=== PATIENT | female | born 1980 | race Asian ===

== ENCOUNTER 2017-05-09 23:27 | Emergency (ER) | payer BC ==
[2017-05-09 23:58] LABS: URINE HCG POC HCG NEGATIVE (Negative)
[2017-05-10 00:09] LABS: BILIRUBIN,URINE SMALL (NEG); CLARITY,URINE CLEAR; COLOR,URINE AMBER; GLUCOSE,URINE NEGATIVE (NEG); NITRITE,URINE NEGATIVE (NEG); PH,URINE 5.5; PROTEIN,URINE NEGATIVE (NEG-TRACE)
[2017-05-10 00:19] LABS: BACTERIA,URINE MODERATE /HPF (0-FEW); RBC,URINE OCC /HPF (0-2); SQUAMOUS EPITHELIAL CELL,UR MANY /LPF
[2017-05-10 00:38] LABS: ADD MAN DIFF? NO
[2017-05-10] MEDS: ONDANSETRON PF 4 MG/2 ML VIAL. IV (00:39)
[2017-05-10] MEDS: IV NORMAL SALINE 1000ML BAG 1,000 ML IV (00:39)
[2017-05-10 00:44] LABS: BASO % 0 % (0-3); EOS # 0.1 x10^3/uL (0.0-0.7); EOS % 2 % (0-3); HEMATOCRIT 36.2 % (36.0-47.0); HEMOGLOBIN 12.3 g/dL (12.0-15.5); LYMPH # 2.7 x10^3/uL (1.0-4.8); LYMPH % 31 % (24-48); MEAN CORPUSCULAR HEMOGLOBIN 30 pg (25-35); MEAN CORPUSCULAR HGB CONC 34 g/dL (31-37); MEAN CORPUSCULAR VOLUME 89 fL (79-100); MONO # 0.4 x10^3/uL (0.0-1.1); MONO % 5 % (0-9); NEUT # 5.4 x10^3uL (1.8-7.7); NEUT % 63 % (31-73); PLATELET COUNT 230 x10^3/uL (140-400); RED BLOOD COUNT 4.09 x10^6/uL (3.50-5.40); RED CELL DISTRIBUTION WIDTH 12.6 % (11.5-14.5); WHITE BLOOD COUNT 8.7 x10^3/uL (4.0-11.0)
[2017-05-10 00:55] LABS: ANION GAP 8 (6-14); BLOOD UREA NITROGEN 17 mg/dL (7-20); BUN/CREATININE RATIO 28 (6-20); CALCIUM 8.9 mg/dL (8.5-10.1); CARBON DIOXIDE 29 mmol/L (21-32); CHLORIDE 103 mmol/L (98-107); CREATININE 0.6 mg/dL (0.6-1.0); GFR 113.1; GLUCOSE 100 mg/dL (70-99); POTASSIUM 3.7 mmol/L (3.5-5.1); SODIUM 140 mmol/L (136-145)
[2017-05-10 01:00] LABS: ALBUMIN 3.8 g/dL (3.4-5.0); ALK PHOS 47 U/L (46-116); ALT (SGPT) 131 U/L (14-59); AST (SGOT) 61 U/L (15-37); LIPASE 90 U/L (73-393); TOTAL BILIRUBIN 0.4 mg/dL (0.2-1.0); TOTAL PROTEIN 7.8 g/dL (6.4-8.2)
[2017-05-10] MEDS: ACETAMINOPHEN 500 MG TABLET PO (02:44)
== END 2017-05-10 03:00 | disposition home or self-care (01) ==
LOC: ER 23:27
DX: R11.2 Nausea with vomiting, unspecified (principal); R42 Dizziness and giddiness
CPT/HCPCS: 36415; 70450; 80053; 81001; 81025; 83690; 85025; 87086; 96361; 96374; 99285-25; J2405; J7030

== ENCOUNTER 2018-01-05 15:37 | Observation (INO) | payer BC ==
[2017-05-10 02:49] VITALS: BP 109/57
[~2018-01-05] VITALS: Ht 154.9 cm; Wt 60.8 kg
[~2018-01-05 15:37] MED LIST: ONDA4TAB10 PO
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
== END 2018-01-05 20:42 | disposition home or self-care (01) ==
LOC: 3 SO LND 15:37
PROVIDERS: ADMIT Specialist; ATTEND Specialist
DX: O26.892 Other specified pregnancy related conditions, second trimester (principal); R10.2 Pelvic and perineal pain; Z3A.27 27 weeks gestation of pregnancy; V49.9XXA Car occupant (driver) (passenger) injured in unspecified traffic accident, initial encounter; Y93.89 Activity, other specified; Y92.410 Unspecified street and highway as the place of occurrence of the external cause
CPT/HCPCS: 36415; 76815; 85460; G0378; G0379

== ENCOUNTER 2018-03-22 05:28 | Inpatient (IN) | payer BC, MEDICAID ==
[2018-03-22] MEDS ORDERED: OXYTOCIN 30 UNIT/500 ML PREMIX 500 ML IV ONE (05:38)
[2018-03-22] MEDS ORDERED: LIDOCAINE 1% PF 30 ML VIAL. ONE (05:38)
[2018-03-22] MEDS ORDERED: OXYTOCIN PREMIX 30 UNIT/500 ML NS BAG. IV ONE (06:00)
[2018-03-22] MEDS ORDERED: IV RINGERS,LACTATED 1000ML 1,000 ML IV SCH (06:18)
--- NOTE | 2018-03-22 06:19 | PDOC1 ---
OB - History Hx of Present Care: Good Care Ultrasounds: Normal mid trimester US Obstetrical Complications: None Medical Complications: None Past Family/Social History * Past Medical, Surgical, Family and Obstetric Histories reviewed from chart. Blood Type: A+ Rubella: Immune RPR/VDRL: Negative GBS Status: Unknown HBsAG: Negative OB - Chief Complaint & HPI Date of Admission: Date of Admission: Mar 22, 2018 at 05:28 Chief Complaint/History : 5 Para: 4 EDC: Apr 03, 2018 Reason for admission: active labor Admission Nurse Assessment Rev: Yes OB - Admission Exam Physical Exam HEENT: Normal, Nasal Mucosa Normal, Oropharynx Normal, Moist Membranes, Fontanelles Normal Heart: Regular Rate Lungs: Clear, Equal Abdomen: Gravid Reflexes: Normal Cervical Dilatation: 9cm Effacement: 100% Station: +1 Membranes: Ruptured Amniotic Fluid: Clear Accelerations: Accelerations Present Contractions on Admission: < 5 Minutes Apart Intensity: Firm Assessment/Plan Assessment/Plan TIUP Labor Precipitous delivery GEMINI GREENE MD Mar 22, 2018 06:19
--- NOTE | 2018-03-22 06:21 | PDOC ---
VAGINAL DELIVERY DATE DATE: 03/22/18 TIME: 06:18 : 5 Para: 4 EDC: Apr 08, 2018 VAGINAL DELIVERY: VTX VACCUM ASSISTED: No PLACENTA: Spontaneous SEX: Male WEIGHT 6/5 Nuchal Cord: No Amniotic Fluid: Clear PAIN: Natural EXTENSION: Yes EBL 300cc COMPLICATIONS None CONDITION Stable Signs of Intrauterine Infectio: None Shoulder Dystocia: No DIAGNOSIS TIUP del precipitous delivery by GEMINI MEJIA MD Mar 22, 2018 06:21
[2018-03-22] MEDS ORDERED: OXYTOCIN 30 UNIT/500 ML PREMIX 500 ML IV PRN ×3 (06:30)
[2018-03-22] MEDS ORDERED: ACETAMINOPHEN 325 MG TABLET. PO PRN ×2 (06:30)
[2018-03-22] MEDS ORDERED: diphenhydrAMINE HCL 25 MG CAPSULE PO PRN (06:30)
[2018-03-22] MEDS ORDERED: CITRIC ACID/SODIUM CITRATE 30 ML SOLUTION. PO PRN (06:30)
[2018-03-22] MEDS ORDERED: 0.9 % SODIUM CHLORIDE 10 ML DISP.SYRIN. IV PRN ×2 (06:30)
[2018-03-22] MEDS ORDERED: BUTORPHANOL 2 MG/ML VIAL. IV PRN ×2 (06:30)
[2018-03-22] MEDS ORDERED: BENZOCAINE 20% TOPICAL AEROSOL SPRAY 57GM CAN. TP PRN (06:30)
[2018-03-22] MEDS ORDERED: TERBUTALINE 1 MG/ML VIAL. SQ PRN (06:30)
[2018-03-22] MEDS ORDERED: ZOLPIDEM 5 MG TABLET. PO PRN (06:30)
[2018-03-22] MEDS ORDERED: SIMETHICONE 80 MG TAB.CHEW PO PRN (06:30)
[2018-03-22] MEDS ORDERED: PHENYLEPH/MINERAL OIL/PETROLAT RECTAL OINTMENT 28GM TUBE. RC PRN (06:30)
[2018-03-22] MEDS ORDERED: MAGNESIUM HYDROXIDE 2,400 MG/30 ML ORAL.SUSP. PO PRN (06:30)
[2018-03-22] MEDS ORDERED: LIDOCAINE 1% PF 30 ML VIAL. INJ PRN (06:30)
[2018-03-22] MEDS ORDERED: MAG HYDROX/ALUMINUM HYD/SIMETH 30 ML ORAL.SUSP PO PRN ×2 (06:30)
[2018-03-22] MEDS ORDERED: HYDROCORTISONE 1% TOPICAL OINTMENT 30GM TUBE. TP PRN (06:30)
[2018-03-22 06:37] LABS: HEMATOCRIT 35.8 % (36.0-47.0); HEMOGLOBIN 11.8 g/dL (12.0-15.5); RED BLOOD COUNT 3.94 x10^6/uL (3.50-5.40); WHITE BLOOD COUNT 8.8 x10^3/uL (4.0-11.0)
[2018-03-22] MEDS: FERROUS SULFATE 325 MG TABLET. PO SCH ×2 (08:00→17:00)
[2018-03-22 09:07] VITALS: BP 118/68
[2018-03-22 10:15] VITALS: BP 104/72
[2018-03-22] MEDS ORDERED: IBUPROFEN 400 MG TABLET. PO SCH (14:00)
[2018-03-22 18:37] VITALS: BP 95/58
[2018-03-22] MEDS: IBUPROFEN 400 MG TABLET. PO PRN (18:49)
[2018-03-22 20:25] VITALS: BP 99/59
[2018-03-23 02:25] VITALS: BP 92/58
[2018-03-23 05:15] VITALS: BP 97/61
[2018-03-23] MEDS: FERROUS SULFATE 325 MG TABLET. PO SCH ×2 (08:00→17:00)
[2018-03-23 09:30] VITALS: BP 99/64
--- NOTE | 2018-03-23 12:47 | PDOC ---
OB Progress Note Date of Service 03/23/18 Time of Evaluation 1244 Notes Pt. feeling well. No complaints. Lab Laboratory Tests Test 03/22/18 06:08 03/23/18 06:02 White Blood Count 8.8 x10^3/uL (4.0-11.0) Red Blood Count 3.94 x10^6/uL (3.50-5.40) Hemoglobin 11.8 g/dL (12.0-15.5) Hematocrit 35.8 % (36.0-47.0) 31.6 % (36.0-47.0) Mean Corpuscular Volume 91 fL (79-100) Mean Corpuscular Hemoglobin 30 pg (25-35) Mean Corpuscular Hemoglobin Concent 33 g/dL (31-37) Red Cell Distribution Width 12.0 % (11.5-14.5) Platelet Count 186 x10^3/uL (140-400) Treponema pallidum Antibody Nonreactive (Nonreactive) Laboratory Tests Test 03/23/18 06:02 Hematocrit 31.6 % (36.0-47.0) Medications Current Medications Lidocaine HCl (Xylocaine 1% Pf 30ml Vial) 30 ml STK-MED ONCE .ROUTE ; Start 11/28 at 05:38; Stop 03/22/18 at 10:11; Status DC Oxytocin/Sodium Chloride 500 ml @ As Directed STK-MED ONCE IV ; Start 03/22/18 at 05:38; Stop 03/22/18 at 10:11; Status DC Sodium Chloride (Normal Saline Flush) 3 ml QSHIFT PRN IV AFTER MEDS AND BLOOD DRAWS; Start 03/22/18 at 06:30; Stop 03/22/18 at 10:11; Status DC Ringer's Solution 1,000 ml @ 125 mls/hr Q8H IV Last administered on 03/22/18at 06:32; Start 03/22/18 at 06:18; Stop 03/22/18 at 10:11; Status DC Butorphanol Tartrate (Stadol) 1 mg PRN Q1HR PRN IV mild to moderate labor pain ; Start 03/22/18 at 06:30; Stop 03/22/18 at 10:11; Status DC Butorphanol Tartrate (Stadol) 2 mg PRN Q1HR PRN IV Severe labor pain; Start 11/28 at 06:30; Stop 03/22/18 at 10:11; Status DC Acetaminophen (Tylenol) 650 mg PRN Q6HRS PRN PO MILD PAIN / TEMP; Start at 06:30 Al Hydroxide/Mg Hydroxide (Mylanta Plus Xs) 30 ml PRN Q4HRS PRN PO HEARTBURN / GAS; Start 03/22/18 at 06:30 Citric Acid/ Sodium Citrate (Bicitra) 30 ml 1X PRN PRN PO DYSPEPSIA; Start 11/28 at 06:30; Stop 03/22/18 at 10:11; Status DC Terbutaline Sulfate (Brethine) 0.25 mg 1X PRN PRN SQ SEE COMMENTS; Start at 06:30; Stop 03/22/18 at 10:11; Status DC Lidocaine HCl (Xylocaine 1% Pf 30ml Vial) 30 ml 1X PRN PRN INJ SEE COMMENTS; Start 03/22/18 at 06:30; Stop 03/22/18 at 10:11; Status DC Oxytocin/Sodium Chloride 500 ml @ 0 mls/hr CONT PRN IV SEE I/O RECORD; Start at 06:30; Stop 03/22/18 at 10:11; Status DC Oxytocin/Sodium Chloride 500 ml @ 0 mls/hr CONT PRN PRN IV Post delivery bleeding; Start 03/22/18 at 06:30; Stop 03/22/18 at 10:11; Status DC Sodium Chloride (Normal Saline Flush) 10 ml QSHIFT PRN IV AFTER MEDS AND BLOOD DRAWS; Start 03/22/18 at 06:30; Stop 03/22/18 at 10:11; Status DC Oxytocin/Sodium Chloride 500 ml @ 62.5 mls/hr CONT PRN IV SEE I/O RECORD; Start 03/22/18 at 06:30; Stop 03/22/18 at 10:11; Status DC Acetaminophen (Tylenol) 650 mg PRN Q6HRS PRN PO MILD PAIN / TEMP; Start at 06:30; Stop 03/22/18 at 06:38; Status DC Ibuprofen (Motrin) 800 mg Q8HRS PO Last administered on 03/22/18at 08:22; Start 03/22/18 at 14:00; Stop 03/22/18 at 14:00; Status DC Ibuprofen (Motrin) 800 mg PRN Q8HRS PRN PO INFLAMMATION/PAIN PREVENTION Last administered on 03/22/18at 18:49; Start 03/22/18 at 06:30 Magnesium Hydroxide (Milk Of Magnesia) 2,400 mg PRN DAILY PRN PO CONSTIPATION; Start 03/22/18 at 06:30 Al Hydroxide/Mg Hydroxide (Mylanta Plus Xs) 30 ml PRN Q4HRS PRN PO HEARTBURN / GAS; Start 03/22/18 at 06:30; Status UNV Simethicone (Gas-X) 80 mg PRN AFTMEALHC PRN PO GAS / BLOATING; Start 03/22/18 at 06:30 Diphenhydramine HCl (Benadryl) 25 mg PRN Q6HRS PRN PO ITCHING; Start 03/22/18 at 06:30 Benzocaine (Americaine) 1 spray PRN QID PRN TP TOPICAL PAIN Last administered on 03/22/18at 08:22; Start 03/22/18 at 06:30 Phenyleph/Shark Oil/Min Oil/Petrol (Preparation H) 1 brittney PRN QID PRN RC RECTAL PAIN; Start 03/22/18 at 06:30 Hydrocortisone (Cortaid) 1 brittney PRN QID PRN TP PERINEAL PAIN; Start 03/22/18 at 06:30 Ferrous Sulfate (Feosol) 325 mg BIDWMEALS PO ; Start 03/22/18 at 08:00 Zolpidem Tartrate (Ambien) 5 mg PRN QHS PRN PO INSOMNIA, MAY REPEAT X1; Start 03/22/18 at 06:30 Info (Do NOT chart on this placeholder) 1 ea 1X PRN PRN MC SEE COMMENTS; Start 03/22/18 at 06:30; Stop 03/22/18 at 10:11; Status DC Active Scripts Active Zofran Odt (Ondansetron) 4 Mg Tab.rapdis 4 Mg PO BID PRN Exam Abd: soft, non tender, fundus firm Assessment PPD#1 s/p Plan of Care: Continue current Tx, Mgmt ANA LUISA MULLNIS Jr, MD Mar 23, 2018 12:47
[2018-03-23 14:55] VITALS: BP 108/74
[2018-03-23 18:15] VITALS: BP 97/66
[2018-03-23] MEDS: IBUPROFEN 400 MG TABLET. PO PRN (18:23)
[2018-03-24 06:05] VITALS: BP 114/64
--- NOTE | 2018-03-24 08:41 | PDOC3 ---
OB DISCHARGE SUMMARY DATE OF ADMISSION: 03/22/18 DATE OF DISCHARGE: 03/24/18 REASON FOR ADMISSION: Onset of labor INTRAPARTUM PROCEDURES: Spontanous Vag Deliv DISCHARGE DIAGNOSIS: Term Delivered DISCHARGE INFORMATION: Activity (ad rafal), Diet (regular), Instructions (pelvic rest x 6 wks) HOSPITAL COURSE Term gestation delivered vaginally without any complications. ANA LUISA MULLINS Jr, MD Mar 24, 2018 08:41
--- NOTE | 2018-03-24 08:42 | DISCH ---
DISCHARGE INSTRUCTIONS Condition on Discharge Condition on Discharge: Stable Activity After Discharge Activity Instructions for Disc: Activity as tolerated Lifting Instructions after Dis: No heavy lifting Driving Instructions after Dis: Do not drive today Diet after Discharge Diet after Discharge: Regular Contacting the DROlivia after DC Call your doctor for: Concerns you may have Follow-Up Follow up with: Dr. Arreguin in 1 wk ANA LUISA MULLINS Jr, MD Mar 24, 2018 08:42
[2018-03-24] MEDS ORDERED: NAPR-514 PO (08:43)
[2018-03-24 13:00] VITALS: BP 104/68
[2018-03-24] MEDS: IBUPROFEN 400 MG TABLET. PO PRN (14:28)
== END 2018-03-24 17:03 | disposition home or self-care (01) | DRG 806 ==
LOC: 3 SO LND 05:28 → OBSVTOIN 06:21 → 3 NORTH 08:38
PROVIDERS: ADMIT Specialist; ATTEND Specialist
PROC: 10E0XZZ Delivery of Products of Conception, External Approach (ICD-10-PCS; principal; 2018-03-22)
DX: O62.3 Precipitate labor (principal); D62 Acute posthemorrhagic anemia; Z37.0 Single live birth; Z3A.40 40 weeks gestation of pregnancy
CPT/HCPCS: 36415; 85014; 85027; 86592; 86850; 86900; 86901; G0379; J2590; J7120; G0378

== ENCOUNTER → 2018-05-08 | Outpatient (CLI) | payer OTHER ==
[~2018-05-08] MED LIST changes: +CONTRAST GIVEN. MC PRN; +IOHEXOL 240 MG/ML 50ML VIAL. PO ONE; +IOHEXOL 300 MG/ML 100ML VIAL. IV ONE; +NAPR-514 PO
--- NOTE | 2018-05-08 12:22 | RAD ---
CT of the abdomen and pelvis with contrast, 05/08/2018: HISTORY: Right inguinal hernia Multidetector CT imaging was performed following oral and IV administration of contrast. No hepatic abnormality is identified. The gallbladder is unremarkable. The pancreas shows no abnormality the spleen is of normal size. No renal abnormality is detected. The abdominal aorta is is unremarkable. No abdominal or pelvic adenopathy is identified. There is a tubular structure along the right side of the inferior vena cava containing a central lucency. The appearance is that of a thrombosed right ovarian vein. The left ovarian vein is opacified. The uterus and ovaries are unremarkable. The urinary bladder shows no abnormality. There is a moderate amount stool scattered throughout the colon. There is no evidence of bowel obstruction. The appendix is unremarkable. No free fluid or free air is evident in the abdomen or pelvis. No hernia is evident at either groin level. IMPRESSION: Right ovarian vein thrombosis. Note: The findings were called to Dr. Lacho Kaminski at 12:18 PM on 05/08/2018. Electronically signed by: Esau Varma MD (05/08/2018 12:19 PM) [facility]
== END | disposition home or self-care (01) ==
LOC: CT 09:54
PROVIDERS: ATTEND Specialist
DX: I82.890 Acute embolism and thrombosis of other specified veins (principal)
CPT/HCPCS: 74177; Q9966; Q9967